=== PATIENT | male | born 1970 | race Caucasian/White ===

== ENCOUNTER 2020-07-21 06:54 | Emergency (ER) | payer OTHER, SELFPAY ==
[2020-07-21 07:00] VITALS: BP 106/92; PULSE 120; RESP 18; TEMP 37.6; O2SAT 100
--- NOTE | 2020-07-21 07:21 | ED.SKABFB ---
HPI - Skin/Abscess/Foreign Bdy General Chief complaint: Skin/Abscess/Foreign Body Stated complaint: insect bite Time Seen by Provider: 07/21/20 07:01 History of Present Illness HPI narrative: 49 yo male w/ h/o DM presents to the ED for bug bites . He reports that he must have been bitten by bugs because He has 2 bumps, 1 on the left thigh and 1 on the left buttock. And they injected poison into him because he has been having nausea and chills. This all started a few days ago. No fever. He has been taking his metformin as prescribed. He reports baseline wheezing, no worse than usual. No CP, abdominal pain, headache. Related Data Home Medications Medication Instructions Recorded Confirmed metformin 850 mg PO BID 07/21/20 07/21/20 Allergies Allergy/AdvReac Type Severity Reaction Status Date / Time Penicillins Allergy Unknown Verified 07/21/20 07:07 Review of Systems Review of Systems: All systems reviewed & are unremarkable except as noted in HPI and below Constitutional: Constitutional: Reports chills Eyes: Eyes: Reports no additional eye complaints ENT: Denies dizziness and Denies sore throat Cardiovascular: Cardiovascular: Denies chest pain Respiratory: Respiratory: Denies dyspnea and Reports wheezing Gastrointestinal: Gastrointestinal: Denies abdominal pain, Denies diarrhea, Reports nausea and Reports vomiting Genitourinary: Genitourinary: Denies hematuria and Denies dysuria Musculoskeletal: Musculoskeletal: Denies back pain Neurologic: Reports system reviewed and no additional complaints, except as documented Endocrine: Endocrine: Denies polydipsia and Denies polyuria [facility] Past Medical History Medical History (Updated 07/22/20 @ 00:00 by Gordy Anderson) Diabetes mellitus Social History Social History (Updated 07/21/20 @ 07:28 by Boyd Rowland MD) Smoking status: Current every day smoker 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 Mild surrounding erythema. Neuro: General: patient oriented x3 and moves all extremities Speech: normal speech Extrem: General: no edema Psych: Appearance: grossly normal and disheveled Mental Status: mental status grossly normal Affect: normal affect Attitude: cooperative Course Vital Signs Vital signs: Vital Signs Temperature 37.6 C H 07/21/20 07:00 Pulse Rate 120 H 07/21/20 07:00 Respiratory Rate 18 07/21/20 07:00 Blood Pressure 106/92 H 07/21/20 07:00 Pulse Oximetry 100 07/21/20 07:00 Temperature 37.1 C 07/21/20 09:09 Pulse Rate 99 07/21/20 09:30 Respiratory Rate 18 07/21/20 09:30 Blood Pressure 123/83 07/21/20 09:30 Pulse Oximetry 97 07/21/20 09:30 Procedures Abscess I/D lower extremity: Side (if applicable): left Local Anesthetic: lidocaine 1% and with epi Amount of anesthesia used (mL): 4 Technique: incised with #11 blade Amount of fluid expressed (mL): 4 Irrigation: Yes Packing used?: iodoform I&D Results: Pus back: Side (if applicable): left Local Anesthetic: lidocaine 1% and with epi Amount of anesthesia used (mL): 2 Technique: incised with #11 blade Amount of fluid expressed (mL): 1 Irrigation: Yes Packing used?: none I&D Results: Pus MDM - Skin/Abscess/Foreign Bdy Diff
[2020-07-21] MEDS: ACETAMINOPHEN 500 MG TABLET 1000 MG PO (07:30)
[2020-07-21] MEDS: ONDANSETRON HCL ODT 4 MG TABLET PO (07:31)
[2020-07-21 09:09] VITALS: BP 123/83; PULSE 99; RESP 16; TEMP 37.1; O2SAT 97
[2020-07-21 09:30] VITALS: BP 123/83; PULSE 99; RESP 18; O2SAT 97
== END 2020-07-21 09:31 | disposition home or self-care (01) ==
PROVIDERS: Emergency Provider Emergency Medicine
DX: L02.416 Cutaneous abscess of left lower limb (principal); L02.31 Cutaneous abscess of buttock; E11.9 Type 2 diabetes mellitus without complications; Z79.84 Long term (current) use of oral hypoglycemic drugs; F17.200 Nicotine dependence, unspecified, uncomplicated
CPT/HCPCS: 10061; 99283; A9270